=== PATIENT | female | born 1975 | race African-American/Black ===

== ENCOUNTER → 2017-10-15 | Outpatient (CLI) | payer OTHER ==
[~2017-10-15] MED LIST: KEFLEX500 MG PO
== END ==
LOC: CAT 10:12
DX: Z13.6 Encounter for screening for cardiovascular disorders (principal)

== ENCOUNTER → 2017-10-29 | Outpatient (CLI) | payer OTHER | LOC: RAD 04:14 | DX: Z12.31 Encounter for screening mammogram for malignant neoplasm of breast (principal) ==

== ENCOUNTER → 2017-11-17 | Outpatient (CLI) | payer OTHER | LOC: ULTRA 02:10 | DX: N63.10 Unspecified lump in the right breast, unspecified quadrant (principal) ==

== ENCOUNTER → 2018-11-08 | Outpatient (CLI) | payer OTHER | LOC: RAD 01:58 | DX: Z12.31 Encounter for screening mammogram for malignant neoplasm of breast (principal) ==

== ENCOUNTER → 2019-06-22 | Outpatient (CLI) | payer OTHER | LOC: RAD 10:35 | DX: R05 Cough (principal) ==

== ENCOUNTER → 2019-11-09 | Outpatient (CLI) | payer OTHER | LOC: RAD 13:30 → BC 21:33 | DX: Z12.31 Encounter for screening mammogram for malignant neoplasm of breast (principal) ==